=== PATIENT | male | born 1995 | race Caucasian/White ===

== ENCOUNTER 2019-03-02 08:14 | Emergency (ER) | payer OTHER ==
[~2019-03-02] VITALS: Ht 177.8 cm; Wt 78.1 kg
[2019-03-02] MEDS ORDERED: FLUORESCEIN OPHTH 1 MG STRIP OD ONE (10:15)
[2019-03-02] MEDS ORDERED: TETRACAINE 0.5% OPHTH SOLN 4ML OD ONE (10:30)
[2019-03-02] MEDS ORDERED: POLYVINYL ALCOHOL OPHTH SOLN 15 ML(LIQUITEARS) OD STA (12:07)
[2019-03-02] MEDS ORDERED: ARTIDRO OD (12:09)
[2019-03-02 12:39] VITALS: BP 123/68
== END 2019-03-02 12:41 | disposition home or self-care (01) ==
LOC: M ED 08:14
DX: H57.11 Ocular pain, right eye (principal); M54.9 Dorsalgia, unspecified

== ENCOUNTER 2019-03-20 14:44 | Inpatient (IN) | payer OTHER ==
[~2019-03-20] VITALS: Ht 180.3 cm; Wt 76.0 kg
[~2019-03-20 14:44] MED LIST: ARTIDRO OD
[2019-03-20 15:19] LABS: HEMATOCRIT 44.5 % (42.0-52.0); HEMOGLOBIN 14.7 g/dl (13.5-17.5); MEAN CORPUSCULAR HEMOGLOBIN 29.2 pg (27.0-33.0); MEAN CORPUSCULAR VOLUME 88.3 fl (80.0-96.0); PLATELET COUNT, AUTOMATED 240 10^3/uL (150-450); RED BLOOD COUNT 5.04 10^6/uL (4.30-6.10); WHITE BLOOD COUNT 9.5 10^3/uL (4.0-10.0)
[2019-03-20 15:49] LABS: AMPHETAMINES LEVEL URINE NEGATIVE (NEGATIVE); BARBITURATES URINE NEGATIVE (NEGATIVE); BENZODIAZEPINES URINE NEGATIVE (NEGATIVE); CANNABINOIDS URINE POSITIVE (NEGATIVE); COCAINE METABOLITE URINE NEGATIVE (NEGATIVE); METHADONE URINE NEGATIVE (NEGATIVE); OPIATES URINE NEGATIVE (NEGATIVE); PHENCYCLIDINE URINE NEGATIVE (NEGATIVE)
[2019-03-20 15:56] LABS: ACETAMINOPHEN LEVEL < 2.0 UG/ML (10.0-30.0); ALBUMIN 4.7 GM/DL (3.2-5.2); ALT/SGPT 25 U/L (12-78); BILIRUBIN,DIRECT 0.2 MG/DL (0.0-0.2); BILIRUBIN,TOTAL 0.4 MG/DL (0.2-1.0); BLOOD UREA NITROGEN 13 MG/DL (7-18); CALCIUM LEVEL 9.2 MG/DL (8.5-10.1); CARBON DIOXIDE LEVEL 30 MEQ/L (21-32); CHLORIDE LEVEL 105 MEQ/L (98-107); CREATININE FOR GFR 0.96 MG/DL (0.70-1.30); ETHYL ALCOHOL (ETHANOL) < 0.003 % (0.000-0.010); GLOMERULAR FILTRATION RATE > 60.0 (>60); GLUCOSE, FASTING 86 MG/DL (70-100); POTASSIUM SERUM 4.1 MEQ/L (3.5-5.1); SALICYLATE LEVEL < 1.7 MG/DL (5.0-30.0); SODIUM LEVEL 139 MEQ/L (136-145); THYROID STIMULATING HORMONE 0.819 uIU/ML (0.358-3.740); TOTAL PROTEIN 7.6 GM/DL (6.4-8.2)
[2019-03-20] MEDS ORDERED: MOM 30ML SUSPENSION UDC PO PRN (17:15)
[2019-03-20] MEDS: OLANZapine ORAL DISINTEGRATING TAB 5MG PO SCH (21:00)
[2019-03-20 22:15] VITALS: BP 117/66
[2019-03-20] MEDS: traZODone 50 MG TAB PO PRN (22:17)
[2019-03-21 06:09] VITALS: BP 111/64
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
[2019-03-21 15:31] VITALS: BP 131/83
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
[2019-03-21] MEDS: haloperidoL 5 MG TAB PO PRN (19:00)
[2019-03-21] MEDS: OLANZapine ORAL DISINTEGRATING TAB 5MG PO SCH (21:17)
[2019-03-22 06:15] VITALS: BP 122/74
--- NOTE | 2019-03-22 14:47 | MHIPN ---
DATE: 03/22/2019 The patient today is much different than she was yesterday. He tells me "I really like it here. It's better than the [employer]." When I try to ask him about some of the delusional things that he was saying yesterday, he said "I don't really want to talk about it. Thank you for your help. My head is clear today." He stated "I think I was having a panic attack and something triggered my PTSD." Of note was that he had the Zyprexa as needed and he did take it last night, and he also took the trazodone. He also took an as needed Haldol, all last night. MENTAL STATUS EXAMINATION: Today, as I said, the patient is much more cooperative. He is alert and oriented times three. He is verbally spontaneous. Psychomotor activity appears to be normal. No formal thought disorder is noted. He tells me that he is doing "better." His affect is constricted, but appropriate to mood. He is not suicidal or homicidal. I am not able to elicit any psychotic symptoms, but I do not know if he is just being guarded about everything. Insight and judgment is poor. Concentration is fair. Memory intact. DIAGNOSIS: Unspecified psychotic disorder. Rule out bipolar disorder with psychotic symptoms. TREATMENT PLAN: At this point, we will continue to monitor the patient for psychotic symptoms and what I feel is manic-like symptoms, where he was having the pressured speech, the flight of ideas yesterday, and very grandiose-type delusions. Today, those either have resolved or I suspect that he is just either minimizing or somewhat more guarded today. He did take, as I said, all last night, a dose of Haldol 5 mg, which was an as needed, and actually, Zyprexa 5 mg at bedtime that is scheduled for him. I am going to go ahead and keep him on what he is on now. I have discussed the risk and benefit.
[2019-03-22 16:04] VITALS: BP 130/62
[2019-03-22] MEDS: OLANZapine ORAL DISINTEGRATING TAB 5MG PO SCH (21:57)
[2019-03-22] MEDS: ACETAMINOPHEN TAB 650MG DOSE (2X325MG) PO PRN (21:57)
[2019-03-22] MEDS: haloperidoL 5 MG TAB PO PRN (22:31)
[2019-03-22] MEDS: traZODone 50 MG TAB PO PRN (22:31)
[2019-03-23 06:50] VITALS: BP 114/58
[2019-03-23] MEDS ORDERED: ARIPiprazole 2 MG TAB PO SCH (09:00)
--- NOTE | 2019-03-23 10:39 | MHIPNPDOC ---
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 He reportedly has significant cannabis use but has no psych history. Interval History Psychiatric symptoms today: The patient is met with today with tool and production planner. The patient appears amenable although somewhat pressured. Affective: The patient reports still difficulties with irritability, difficulty focusing, and pressured speech. Psychotic: The patient still has paranoia and delusional thoughts as well as aggression. Anxiety: still worry about being poisoned. Misc: eating okay/ sleeping difficulty Group Attendance: The patient attends but is argumentative and uncontrollable in groups Medication Side effects: See ROS below Behavioral problems/significant events overnight: The patient had difficulty and being redirected in groups many times. Staff Report: The patient is still quite bizarre, delusional at times, and can be quite agitated. Review Of Systems General: Denies fever or appetite changes Cardiovascular: Denies Chest pain or palpations GI: Denies Nausea, vomiting, or bowel changes Respiratory: Denies shortness of breath or cough Neuro: Denies dizziness, tremors Derm: Denies any rashes or pruritus : Denies any dysuria or urinary problems MSK: Denies any muscle tightness or stiffness HEENT: Denies any vision changes or headaches Psychotherapy None on this visit. Vital Signs Reviewed. Mental Status Examination General: Fair hygiene Speech: Mildly pressured Thought processes: Mildly tangential MSK: Smooth and coordinated gait, no signs of tremors or involuntary orofacial movements Thought content: Still rife with paranoia and bizarre thoughts Abstract reasoning, and computation: Impaired Description of associations: Impaired Description of abnormal or psychotic thoughts: Denies any suicidal or homicidal ideation. Denies any auditory or visual hallucinations. Does not appear to be responding to internal stimuli. Does not appear to be endorsing any bizarre or paranoid ideation. Judgment: impaired Insight: impaired Orientation: Alert and orientated 3 Cognition: Grossly normal Recent and remote memory: Intact Attention span and concentration: Mildly impaired Fund of knowledge: Adequate Mood: "fine" Affect: Little reactivity Diagnoses Bipolar disorder, type 1, most recent episode manic. Cannabis use disorder, severe. Assessment and Plan Bipolar disorder: Will cross-taper off of Zyprexa on to Invega 3 mg, as injectable would be preferable for this patient. Discussed the risks, benefits, and potential side effects with patient as well as alternatives. Cannabis use disorder: Recommend outpatient rehab. Discussed concerns about continued use. Disposition The patient will need a continued admission due to his [id number] manic episode, continued agitation, and irritability. He is still paranoid and delusional, although he guards himself quite readily around this provider. He would still be at great risk of violence towards others or himself if he is released too early. Time Spent 15 minutes. Saturday Vital Signs Vital Signs Date Time Temp Pulse Resp B/P (MAP) Pulse Ox O2 Delivery O2 Flow Rate FiO2 03/23/19 06:50 98.6 54 12 114/58 (76) 03/20/19 22:15 100 Room Air Current Medications Current Medications Medications (Trade) Dose Ordered Sig/Marisol Route PRN Reason Start Time Stop Time Status Last Admin Dose Admin Acetaminophen (Tylenol Tab) 650 mg Q6HP PRN PO HEADACHE or DISCOMFORT 03/20/19 17:15 03/22/19 21:57 Aripiprazole (AbiLIFY) 2 mg QAM PO 03/23/19 09:00 03/22/19 12:04 DC Haloperidol (Haldol) 5 mg Q6HP PRN PO ANXIETY/AGITATION 03/20/19 17:15 03/22/19 22:31 Home Med (Med Rec Complete!) ASDIRECTED XX 03/20/19 17:30 03/20/19 17:25 DC Ibuprofen (Advil) 400 mg Q6HP PRN PO PAIN 03/20/19 17:15 Magnesium Hydroxide (Milk Of Magnesia) 30 ml DAILYPRN PRN PO CONSTIPATION 03/20/19 17:15 Olanzapine (ZyPREXA ZYDIS) 5 mg Q4HP PRN PO AGITATION 03/20/19 17:15 Olanzapine (ZyPREXA ZYDIS) 5 mg QHS PO 03/20/19 21:00 03/22/19 21:57 Trazodone HCl (Desyrel) 50 mg QHSP PRN PO INSOMNIA 03/20/19 17:15 03/22/19 22:31 Allergies Coded Allergies: No Known Allergies (Unverified , 03/02/19) PRITI HUYNH DO Mar 23, 2019 10:39
[2019-03-23 16:00] VITALS: BP 115/56
[2019-03-23] MEDS ORDERED: OLANZapine ORAL DISINTEGRATING TAB 5MG PO SCH ×2 (21:00)
[2019-03-23] MEDS ORDERED: PALIPERIDONE 3 MG ER TAB (INVEGA) PO SCH (21:00)
[2019-03-23] MEDS: traZODone 50 MG TAB PO PRN (21:16)
[2019-03-24 06:16] VITALS: BP 131/76
--- NOTE | 2019-03-24 12:14 | MHIPNPDOC ---
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 He reportedly has significant cannabis use but has no psych history. Interval History Psychiatric symptoms today: The patient is met with today. He reports that he is "feeling better" and is amenable throughout the interview with some guardedness. Affective: The patient still reports difficulty with irritability, pressured speech and agitation in the morning. Psychotic: The patient at times will express delusional thoughts and paranoia. Anxiety: Still has paranoia about being poisoned. Misc: eating okay/ sleeping difficulty Group Attendance: The patient attends but is argumentative and uncontrollable in groups Medication Side effects: See ROS below Behavioral problems/significant events overnight: The patient has notable agitation needing as needed medications in the morning. Staff Report: The patient is still quite bizarre, delusional at times, and can be quite agitated. Review Of Systems General: Denies fever or appetite changes Cardiovascular: Denies Chest pain or palpitations GI: Denies Nausea, vomiting, or bowel changes Respiratory: Denies shortness of breath or cough Neuro: Denies dizziness, tremors Derm: Denies any rashes or pruritus : Denies any dysuria or urinary problems MSK: Denies any muscle tightness or stiffness HEENT: Denies any vision changes or headaches Psychotherapy None on this visit. Vital Signs Reviewed. Mental Status Examination General: Fair hygiene Speech: Mildly pressured Thought processes: Mildly tangential MSK: Smooth and coordinated gait, no signs of tremors or involuntary orofacial movements Thought content: Admits to less paranoia. Abstract reasoning, and computation: Impaired Description of associations: Impaired Description of abnormal or psychotic thoughts: Denies any suicidal or homicidal ideation. Denies any auditory or visual hallucinations. Does not appear to be responding to internal stimuli. Does not appear to be endorsing any bizarre or paranoid ideation. Judgment: impaired Insight: impaired Orientation: Alert and orientated 3 Cognition: Grossly normal Recent and remote memory: Intact Attention span and concentration: Mildly impaired Fund of knowledge: Adequate Mood: "fine" Affect: Little reactivity Diagnoses Bipolar disorder, type 1, most recent episode manic. Cannabis use disorder, severe. Assessment and Plan Bipolar disorder: We will increase Invega to 6 mg nightly. Patient still ambivalent about injection. Cannabis use disorder: Recommend outpatient rehab. Discussed concerns about continued use. Disposition The patient will need a continued admission due to his [id number] manic episode, continued agitation, and irritability. He is still paranoid and delusional, although he guards himself quite readily around this provider. He would still be at great risk of violence towards others or himself if he is released too early. Time Spent 15 minutes. Saturday Vital Signs Vital Signs Date Time Temp Pulse Resp B/P (MAP) Pulse Ox O2 Delivery O2 Flow Rate FiO2 03/24/19 06:16 98.9 69 18 131/76 (94) 03/20/19 22:15 100 Room Air Current Medications Current Medications Medications (Trade) Dose Ordered Sig/Marisol Route PRN Reason Start Time Stop Time Status Last Admin Dose Admin Acetaminophen (Tylenol Tab) 650 mg Q6HP PRN PO HEADACHE or DISCOMFORT 03/20/19 17:15 03/22/19 21:57 Aripiprazole (AbiLIFY) 2 mg QAM PO 03/23/19 09:00 03/22/19 12:04 DC Haloperidol (Haldol) 5 mg Q6HP PRN PO ANXIETY/AGITATION 03/20/19 17:15 03/22/19 22:31 Home Med (Med Rec Complete!) ASDIRECTED XX 03/20/19 17:30 03/20/19 17:25 DC Ibuprofen (Advil) 400 mg Q6HP PRN PO PAIN 03/20/19 17:15 Magnesium Hydroxide (Milk Of Magnesia) 30 ml DAILYPRN PRN PO CONSTIPATION 03/20/19 17:15 Olanzapine (ZyPREXA ZYDIS) 5 mg Q4HP PRN PO AGITATION 03/20/19 17:15 Olanzapine (ZyPREXA ZYDIS) 5 mg QHS PO 03/20/19 21:00 03/23/19 10:45 DC 03/22/19 21:57 Olanzapine (ZyPREXA ZYDIS) 5 mg QHS PO 03/23/19 21:00 03/23/19 21:16 Olanzapine (ZyPREXA ZYDIS) 10 mg QHS PO 03/23/19 21:00 03/23/19 13:01 DC Paliperidone (Invega) 3 mg QHS PO 03/23/19 21:00 03/23/19 21:16 Trazodone HCl (Desyrel) 50 mg QHSP PRN PO INSOMNIA 03/20/19 17:15 03/23/19 21:16 Allergies Coded Allergies: No Known Allergies (Unverified , 03/02/19) PRITI HUYNH DO Mar 24, 2019 12:14
[2019-03-24 16:05] VITALS: BP 138/66
[2019-03-24] MEDS ORDERED: SENNA 8.6 MG TAB (SENOKOT) PO PRN (17:15)
[2019-03-24] MEDS: IBUPROFEN 400 MG TAB PO PRN (19:02)
[2019-03-24] MEDS: OLANZapine ORAL DISINTEGRATING TAB 5MG PO PRN (19:03)
[2019-03-24] MEDS: haloperidoL 5 MG TAB PO PRN (20:09)
[2019-03-24] MEDS ORDERED: PALIPERIDONE 6 MG ER TAB (INVEGA) PO SCH (21:00)
[2019-03-24] MEDS: traZODone 50 MG TAB PO PRN (21:38)
[2019-03-25 07:24] VITALS: BP 114/64
[2019-03-25] MEDS: IBUPROFEN 400 MG TAB PO PRN ×2 (07:36→13:41)
[2019-03-25] MEDS: OLANZapine ORAL DISINTEGRATING TAB 5MG PO PRN ×2 (09:13→20:54)
[2019-03-25] MEDS: haloperidoL 5 MG TAB PO PRN (10:17)
--- NOTE | 2019-03-25 11:48 | MHIPNPDOC ---
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 He reportedly has significant cannabis use but has no psych history. Interval History Psychiatric symptoms today: The patient is met with today. He reports that he is feeling somewhat better, still has difficulty with being quite guarded during the interview. Affective: The patient still reports irritability, improved pressured speech and still has difficulty in the morning with agitation. Psychotic: The patient at times will express delusional thoughts and paranoia. Anxiety: Still has paranoia about being poisoned. Misc: eating okay/ sleeping difficulty Group Attendance: The patient attends but is argumentative and uncontrollable in groups Medication Side effects: See ROS below Behavioral problems/significant events overnight: The patient has notable agitation needing as needed medications in the morning. Staff Report: The patient is still quite bizarre, delusional at times, and can be quite agitated. Review Of Systems General: Denies fever or appetite changes Cardiovascular: Denies Chest pain or palpations GI: Denies Nausea, vomiting, or bowel changes Respiratory: Denies shortness of breath or cough Neuro: Denies dizziness, tremors Derm: Denies any rashes or pruritus : Denies any dysuria or urinary problems MSK: Denies any muscle tightness or stiffness HEENT: Denies any vision changes or headaches Psychotherapy None on this visit. Vital Signs Reviewed. Mental Status Examination General: Fair hygiene Speech: Improved, more fluent. Thought processes: More focused MSK: Smooth and coordinated gait, no signs of tremors or involuntary orofacial movements Thought content: Admits to less paranoia. Abstract reasoning, and computation: Improved Description of associations: Improved Description of abnormal or psychotic thoughts: Denies any suicidal or homicidal ideation. Denies any auditory or visual hallucinations. Does not appear to be responding to internal stimuli. Does not appear to be endorsing any bizarre or paranoid ideation. Judgment: Improved Insight: Improved Orientation: Alert and orientated 3 Cognition: Grossly normal Recent and remote memory: Intact Attention span and concentration: Improved Fund of knowledge: Adequate Mood: "fine" Affect: More reactivity Diagnoses Bipolar disorder, type 1, most recent episode manic. Cannabis use disorder, severe. Assessment and Plan Bipolar disorder: Invega 3 mg BID. Patient reports he feels the medication stops working in the morning and could have periods of off time. We will patient Invega Sustenna 234 injection intramuscular. Cannabis use disorder: Recommend outpatient rehab. Discussed concerns about continued use. Disposition Patient will need a further inpatient admission due to his severe bipolar disorder. He is making some improvements, but at this time will still need medication titration, he is open to injection of which he will get. Time Spent 15 minutes. Saturday Vital Signs Vital Signs Date Time Temp Pulse Resp B/P (MAP) Pulse Ox O2 Delivery O2 Flow Rate FiO2 03/25/19 07:24 98.0 94 16 114/64 (81) 03/20/19 22:15 100 Room Air Current Medications Current Medications Medications (Trade) Dose Ordered Sig/Marisol Route PRN Reason Start Time Stop Time Status Last Admin Dose Admin Acetaminophen (Tylenol Tab) 650 mg Q6HP PRN PO HEADACHE or DISCOMFORT 03/20/19 17:15 03/22/19 21:57 Aripiprazole (AbiLIFY) 2 mg QAM PO 03/23/19 09:00 03/22/19 12:04 DC Haloperidol (Haldol) 5 mg Q6HP PRN PO ANXIETY/AGITATION 03/20/19 17:15 03/25/19 10:17 Home Med (Med Rec Complete!) ASDIRECTED XX 03/20/19 17:30 03/20/19 17:25 DC Ibuprofen (Advil) 400 mg Q6HP PRN PO PAIN 03/20/19 17:15 03/25/19 07:36 Magnesium Hydroxide (Milk Of Magnesia) 30 ml DAILYPRN PRN PO CONSTIPATION 03/20/19 17:15 Olanzapine (ZyPREXA ZYDIS) 5 mg Q4HP PRN PO AGITATION 03/20/19 17:15 03/25/19 09:13 Olanzapine (ZyPREXA ZYDIS) 5 mg QHS PO 03/20/19 21:00 03/23/19 10:45 DC 03/22/19 21:57 Olanzapine (ZyPREXA ZYDIS) 5 mg QHS PO 03/23/19 21:00 03/24/19 15:00 DC 03/23/19 21:16 Olanzapine (ZyPREXA ZYDIS) 10 mg QHS PO 03/23/19 21:00 03/23/19 13:01 DC Paliperidone (Invega) 3 mg QHS PO 03/23/19 21:00 03/24/19 15:00 DC 03/23/19 21:16 Paliperidone (Invega) 6 mg QHS PO 03/24/19 21:00 03/24/19 20:09 Senna (Senokot) 1 tab DAILYPRN PRN PO CONSTIPATION 03/24/19 17:15 Trazodone HCl (Desyrel) 50 mg QHSP PRN PO INSOMNIA 03/20/19 17:15 03/24/19 21:38 Allergies Coded Allergies: No Known Allergies (Unverified , 03/02/19) PRITI HUYNH DO Mar 25, 2019 11:48
[2019-03-25] MEDS ORDERED: PALIPERIDONE 6 MG ER TAB (INVEGA) PO SCH (12:00)
[2019-03-25] MEDS ORDERED: PALIPERIDONE PALMITATE 234MG/1.5ML INJ (INVEGA)(J2426)(FREE PSY INPT ONLY) IM ONE (12:00)
[2019-03-25] MEDS: PALIPERIDONE 3 MG ER TAB (INVEGA) PO SCH ×2 (12:48→20:54)
[2019-03-25 16:30] VITALS: BP 131/71
[2019-03-25] MEDS: traZODone 50 MG TAB PO PRN (20:54)
[2019-03-25] MEDS ORDERED: traZODone 50 MG TAB PO ONE (22:30)
[2019-03-26 06:22] VITALS: BP 149/88
[2019-03-26] MEDS: PALIPERIDONE 3 MG ER TAB (INVEGA) PO SCH ×2 (07:47→20:28)
[2019-03-26] MEDS: OLANZapine ORAL DISINTEGRATING TAB 5MG PO PRN ×2 (07:48→18:10)
[2019-03-26] MEDS: haloperidoL 5 MG TAB PO PRN (10:00)
--- NOTE | 2019-03-26 10:46 | MHIPNPDOC ---
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 He reportedly has significant cannabis use but has no psych history. Interval History Narrative: The patient has met with, he had difficulty this morning with agitation and bizarreness when met with he is somewhat guarded, but more appropriate with me. Affective: The patient endorses some worries, but no depression. Psychotic: Patient's irritability, pressured speech, and disorganization and paranoia still present at times, although the patient denies they are getting worse change. Anxiety: The patient reports still some paranoid thoughts. Eating and sleeping behaviors: Within normal limits. Group Attendance: Attends groups, but direction change. Behavioral problems/significant events overnight: The patient this morning, looking quite agitated, bizarre and paranoid. He made various acquisitions demanding to leave. Staff Report: The patient appears to be in behavioral control more in the afternoon and in the mornings he tends to be quite paranoid and distraught. Review Of Systems General: Denies fever or appetite changes Cardiovascular: Denies Chest pain or palpations GI: Denies Nausea, vomiting, or bowel changes Respiratory: Denies shortness of breath or cough Neuro: Denies dizziness, tremors Derm: Denies any rashes or pruritus : Denies any dysuria or urinary problems MSK: Denies any muscle tightness or stiffness HEENT: Denies any vision changes or headaches Psychotherapy None on this visit. Vital Signs Reviewed. Mental Status Examination General: Fair hygiene Speech: Improved, more fluent. Thought processes: More focused MSK: Smooth and coordinated gait, no signs of tremors or involuntary orofacial movements Thought content: Admits to less paranoia. Abstract reasoning, and computation: Improved Description of associations: Improved Description of abnormal or psychotic thoughts: Denies any suicidal or homicidal ideation. Denies any auditory or visual hallucinations. Does not appear to be responding to internal stimuli. Does not appear to be endorsing any bizarre or paranoid ideation. Judgment: Improved Insight: Improved Orientation: Alert and orientated 3 Cognition: Grossly normal Recent and remote memory: Intact Attention span and concentration: Improved Fund of knowledge: Adequate Mood: "fine" Affect: More reactivity Diagnoses Bipolar disorder, type 1, most recent episode manic. Cannabis use disorder, severe. Assessment and Plan Bipolar disorder: Continue Invega 3 mg BID. Try Inderal and Cogentin as possible akathisia side effect causing difficulties in the morning. Cannabis use disorder: Recommend outpatient rehab. Discussed concerns about continued use. Disposition Patient will need a further inpatient admission due to his severe bipolar di sorder. He is making some improvements, but at this time will still need medication titration, he is open to injection of which he will get. Time Spent 15 minutes. Vital Signs Vital Signs Date Time Temp Pulse Resp B/P (MAP) Pulse Ox O2 Delivery O2 Flow Rate FiO2 03/26/19 09:41 Room Air 03/26/19 06:22 97.3 76 14 149/88 (108) 03/20/19 22:15 100 Current Medications Current Medications Medications (Trade) Dose Ordered Sig/Marisol Route PRN Reason Start Time Stop Time Status Last Admin Dose Admin Acetaminophen (Tylenol Tab) 650 mg Q6HP PRN PO HEADACHE or DISCOMFORT 03/20/19 17:15 03/22/19 21:57 Aripiprazole (AbiLIFY) 2 mg QAM PO 03/23/19 09:00 03/22/19 12:04 DC Haloperidol (Haldol) 5 mg Q6HP PRN PO ANXIETY/AGITATION 03/20/19 17:15 03/26/19 10:00 Home Med (Med Rec Complete!) ASDIRECTED XX 03/20/19 17:30 03/20/19 17:25 DC Ibuprofen (Advil) 400 mg Q6HP PRN PO PAIN 03/20/19 17:15 03/25/19 13:41 Magnesium Hydroxide (Milk Of Magnesia) 30 ml DAILYPRN PRN PO CONSTIPATION 03/20/19 17:15 03/26/19 10:43 Olanzapine (ZyPREXA ZYDIS) 5 mg Q4HP PRN PO AGITATION 03/20/19 17:15 03/26/19 07:48 Olanzapine (ZyPREXA ZYDIS) 5 mg QHS PO 03/20/19 21:00 03/23/19 10:45 DC 03/22/19 21:57 Olanzapine (ZyPREXA ZYDIS) 5 mg QHS PO 03/23/19 21:00 03/24/19 15:00 DC 03/23/19 21:16 Olanzapine (ZyPREXA ZYDIS) 10 mg QHS PO 03/23/19 21:00 03/23/19 13:01 DC Paliperidone (Invega) 3 mg BID PO 03/25/19 09:00 03/26/19 07:47 Paliperidone (Invega) 3 mg BID PO 03/25/19 12:00 03/25/19 12:37 DC Paliperidone (Invega) 3 mg QHS PO 03/23/19 21:00 03/24/19 15:00 DC 03/23/19 21:16 Paliperidone (Invega) 6 mg QHS PO 03/24/19 21:00 03/25/19 12:01 DC 03/24/19 20:09 Senna (Senokot) 1 tab DAILYPRN PRN PO CONSTIPATION 03/24/19 17:15 Trazodone HCl (Desyrel) 50 mg QHSP PRN PO INSOMNIA 03/20/19 17:15 03/25/19 20:54 Allergies Coded Allergies: No Known Allergies (Unverified , 03/02/19) PRITI HUYNH DO Mar 26, 2019 10:46
[2019-03-26] MEDS ORDERED: PILL CUTTER 1 EACH XX PRN (11:15)
[2019-03-26] MEDS ORDERED: BENZTROPINE 0.5 MG TAB PO ONE (11:15)
[2019-03-26] MEDS ORDERED: PROPRANOLOL 10 MG TAB PO ONE (12:00)
[2019-03-26] MEDS ORDERED: ANALGESIC BALM CRM 120 GM TOP ONE (13:00)
[2019-03-26] MEDS: IBUPROFEN 400 MG TAB PO PRN (13:43)
[2019-03-26 18:40] VITALS: BP 143/72
[2019-03-26] MEDS: ACETAMINOPHEN TAB 650MG DOSE (2X325MG) PO PRN (20:28)
[2019-03-26] MEDS: traZODone 50 MG TAB PO PRN (21:48)
[2019-03-27 06:09] VITALS: BP 144/72
[2019-03-27] MEDS: OLANZapine ORAL DISINTEGRATING TAB 5MG PO PRN ×2 (06:12→10:27)
[2019-03-27] MEDS: IBUPROFEN 400 MG TAB PO PRN ×2 (06:35→15:59)
[2019-03-27] MEDS: PALIPERIDONE 3 MG ER TAB (INVEGA) PO SCH ×2 (08:56→20:58)
[2019-03-27] MEDS ORDERED: PROPRANOLOL 10 MG TAB PO PRN (11:00)
--- NOTE | 2019-03-27 11:27 | MHIPNPDOC ---
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 He reportedly has significant cannabis use but has no psych history. Interval History Narrative: The patient is met with, he had another difficult morning with agitation and bizarreness; however, this had resolved by the time I had seen him. He reports that he still has moments. He reports that the medication is helpful. Affective: The patient endorses some worries, but no depression. Psychotic: Patient's irritability, pressured speech, and disorganization and paranoia still present at times, although the patient denies they are getting worse change. Anxiety: The patient reports still some paranoid thoughts. Eating and sleeping behaviors: Within normal limits. Group Attendance: Attends groups, but direction change. Behavioral problems/significant events overnight: The patient had difficulties this morning with being quite agitated, bizarre and paranoid. Staff Report: The patient has difficulties in the morning primarily, but otherwise is well Review Of Systems General: Denies fever or appetite changes Cardiovascular: Denies Chest pain or palpations GI: Denies Nausea, vomiting, or bowel changes Respiratory: Denies shortness of breath or cough Neuro: Denies dizziness, tremors Derm: Denies any rashes or pruritus : Denies any dysuria or urinary problems MSK: Denies any muscle tightness or stiffness HEENT: Denies any vision changes or headaches Psychotherapy None on this visit. Vital Signs Reviewed. Mental Status Examination General: Fair hygiene Speech: Improved, more fluent. Thought processes: More focused MSK: Smooth and coordinated gait, no signs of tremors or involuntary orofacial movements Thought content: Admits to less paranoia. Abstract reasoning, and computation: Improved Description of associations: Improved Description of abnormal or psychotic thoughts: Denies any suicidal or homicidal ideation. Denies any auditory or visual hallucinations. Does not appear to be responding to internal stimuli. Does not appear to be endorsing any bizarre or paranoid ideation. Judgment: Improved Insight: Improved Orientation: Alert and orientated 3 Cognition: Grossly normal Recent and remote memory: Intact Attention span and concentration: Improved Fund of knowledge: Adequate Mood: "fine" Affect: More reactivity Diagnoses Bipolar disorder, type 1, most recent episode manic. Cannabis use disorder, severe. Assessment and Plan Bipolar disorder: Continue Invega 3 mg BID second injection of 154 mg of Invega Sustenna will be given tomorrow with discontinuation of oral, started propranolol 10 mg every 6 hours for restlessness and agitation due to concerns of akathisia. Cannabis use disorder: Recommend outpatient rehab. Discussed concerns about continued use. Disposition The patient will need a further observation over the weekend in order to determine if he is improving enough that he can be discharged. Time Spent 15 minutes. Saturday Vital Signs Vital Signs Date Time Temp Pulse Resp B/P (MAP) Pulse Ox O2 Delivery O2 Flow Rate FiO2 03/27/19 06:09 98.4 76 16 144/72 (96) 03/26/19 09:41 Room Air Current Medications Current Medications Medications (Trade) Dose Ordered Sig/Marisol Route PRN Reason Start Time Stop Time Status Last Admin Dose Admin Acetaminophen (Tylenol Tab) 650 mg Q6HP PRN PO HEADACHE or DISCOMFORT 03/20/19 17:15 03/26/19 20:28 Aripiprazole (AbiLIFY) 2 mg QAM PO 03/23/19 09:00 03/22/19 12:04 DC Benztropine Mesylate (Cogentin) 0.5 mg BIDP PRN PO eps 03/26/19 11:15 Haloperidol (Haldol) 5 mg Q6HP PRN PO ANXIETY/AGITATION 03/20/19 17:15 03/26/19 10:00 Home Med (Med Rec Complete!) ASDIRECTED XX 03/20/19 17:30 03/20/19 17:25 DC Ibuprofen (Advil) 400 mg Q6HP PRN PO PAIN 03/20/19 17:15 03/27/19 06:35 Magnesium Hydroxide (Milk Of Magnesia) 30 ml DAILYPRN PRN PO CONSTIPATION 03/20/19 17:15 03/26/19 10:43 Olanzapine (ZyPREXA ZYDIS) 5 mg Q4HP PRN PO AGITATION 03/20/19 17:15 03/27/19 10:27 Olanzapine (ZyPREXA ZYDIS) 5 mg QHS PO 03/20/19 21:00 03/23/19 10:45 DC 03/22/19 21:57 Olanzapine (ZyPREXA ZYDIS) 5 mg QHS PO 03/23/19 21:00 03/24/19 15:00 DC 03/23/19 21:16 Olanzapine (ZyPREXA ZYDIS) 10 mg QHS PO 03/23/19 21:00 03/23/19 13:01 DC Paliperidone (Invega) 3 mg BID PO 03/25/19 09:00 03/27/19 08:56 Paliperidone (Invega) 3 mg BID PO 03/25/19 12:00 03/25/19 12:37 DC Paliperidone (Invega) 3 mg QHS PO 03/23/19 21:00 03/24/19 15:00 DC 03/23/19 21:16 Paliperidone (Invega) 6 mg QHS PO 03/24/19 21:00 03/25/19 12:01 DC 03/24/19 20:09 Propranolol HCl (Inderal) 10 mg Q6H PRN PO anxiety/restlessness 03/27/19 11:00 Senna (Senokot) 1 tab DAILYPRN PRN PO CONSTIPATION 03/24/19 17:15 Trazodone HCl (Desyrel) 50 mg QHSP PRN PO INSOMNIA 03/20/19 17:15 03/26/19 21:48 Allergies Coded Allergies: No Known Allergies (Unverified , 03/02/19) PRITI HUYNH DO Mar 27, 2019 11:27
[2019-03-27] MEDS ORDERED: PALIPERIDONE PALMITATE 156MG/1ML INJ(INVEGA)(J2426)(FREE PSY INPT ONLY) IM ONE (15:00)
[2019-03-27] MEDS: haloperidoL 5 MG TAB PO PRN (15:59)
[2019-03-27 16:27] VITALS: BP 138/65
[2019-03-27] MEDS: traZODone 50 MG TAB PO PRN (20:58)
[2019-03-27] MEDS: BENZTROPINE 0.5 MG TAB PO PRN (20:59)
[2019-03-28 05:59] VITALS: BP 129/66
[2019-03-28] MEDS: PALIPERIDONE 3 MG ER TAB (INVEGA) PO SCH (08:24)
[2019-03-28] MEDS ORDERED: PALIPERIDONE PALMITATE 156MG/1ML INJ(INVEGA)(J2426)(FREE PSY INPT ONLY) IM ONE (09:00)
[2019-03-28] MEDS: OLANZapine ORAL DISINTEGRATING TAB 5MG PO PRN ×2 (09:08→17:29)
[2019-03-28] MEDS: IBUPROFEN 400 MG TAB PO PRN ×2 (09:09→17:30)
[2019-03-28] MEDS: haloperidoL 5 MG TAB PO PRN ×2 (12:08→20:44)
[2019-03-28 16:18] VITALS: BP 131/88
[2019-03-28 19:21] VITALS: BP 131/88
[2019-03-28] MEDS: BENZTROPINE 0.5 MG TAB PO PRN (20:44)
[2019-03-28] MEDS: traZODone 50 MG TAB PO PRN (20:44)
[2019-03-29 06:33] VITALS: BP 102/68
[2019-03-29] MEDS: IBUPROFEN 400 MG TAB PO PRN ×2 (09:20→16:30)
[2019-03-29] MEDS: OLANZapine ORAL DISINTEGRATING TAB 5MG PO PRN ×2 (09:21→19:20)
[2019-03-29 16:07] VITALS: BP 138/64
[2019-03-29] MEDS: haloperidoL 5 MG TAB PO PRN (16:30)
[2019-03-29] MEDS: ACETAMINOPHEN TAB 650MG DOSE (2X325MG) PO PRN (19:20)
[2019-03-29] MEDS: traZODone 50 MG TAB PO PRN (20:33)
[2019-03-29] MEDS: BENZTROPINE 0.5 MG TAB PO PRN (20:33)
[2019-03-30 06:49] VITALS: BP 102/55
[2019-03-30] MEDS: OLANZapine ORAL DISINTEGRATING TAB 5MG PO PRN ×2 (10:44→20:31)
[2019-03-30] MEDS: IBUPROFEN 400 MG TAB PO PRN (10:44)
--- NOTE | 2019-03-30 11:06 | MHIPNPDOC ---
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 He reportedly has significant cannabis use but has no psych history. Interval History Narrative: The patient is met with, he has been doing better and had taken the injection over the weekend. He reports that he is feeling better. He is still pending a court hearing, however, has had no episodes of severe agitation. Affective: The patient only endorses some worries, denies any depressive symptoms. Psychotic: The patient's mildly paranoid ideation appears to still appear in meetings with others, but does not appear during my meeting with him. He denies any symptoms of that such. Anxiety: The patient reports feeling "bettter." Eating and sleeping behaviors: Within normal limits. Group Attendance: Attends groups, but has behavioral problems at times. Behavioral problems/significant events overnight: The patient has reportedly talked about some bizarre ideation, however, has not had any aggression or unusual behaviors that would impair his ADLs. Staff Report: The patient has been generally amenable, although will at times make some unusual statements. Review Of Systems General: Denies fever or appetite changes Cardiovascular: Denies Chest pain or palpations GI: Denies Nausea, vomiting, or bowel changes Respiratory: Denies shortness of breath or cough Neuro: Denies dizziness, tremors Derm: Denies any rashes or pruritus : Denies any dysuria or urinary problems MSK: Denies any muscle tightness or stiffness HEENT: Denies any vision changes or headaches Psychotherapy None on this visit. Vital Signs Reviewed. Mental Status Examination General: Fair hygiene Speech: Fluid, nonpressured. Thought processes: Linear. MSK: Smooth and coordinated gait, no signs of tremors or involuntary orofacial movements Thought content: Denies any paranoid thoughts. Abstract reasoning, and computation: Improved Description of associations: Improved Description of abnormal or psychotic thoughts: Denies any suicidal or homicidal ideation. Denies any auditory or visual hallucinations. Does not appear to be responding to internal stimuli. Does not appear to be endorsing any bizarre or paranoid ideation. Judgment: Improved Insight: Improved Orientation: Alert and orientated 3 Cognition: Grossly normal Recent and remote memory: Intact Attention span and concentration: Improved Fund of knowledge: Adequate Mood: "fine" Affect: Reactive, euthymic Diagnoses Bipolar disorder, type 1, most recent episode manic. Cannabis use disorder, severe. Assessment and Plan Bipolar disorder: Continue propranolol for potential akathisia, is currently loaded on Invega. Cannabis use disorder: Recommend outpatient rehab. Discussed concerns about continued use. Disposition The patient will be discharged tomorrow as he has requested a court hearing and at this time he has not done any aggressive behaviors, has not made any threats towards others, and has only broadcast some unusual/paranoid ideation from time to time. However at this time I do not believe we would be successful in any court petition and I find it difficult to make a strong argument for him being gravely impaired as he has been attending to his needs on the unit and he has not been demonstrating any aggressive behavior towards others that has been documented and thus he will have to be discharged in good ban even after I have discussed with him and offered long-term treatment and other alternatives. Time Spent 15 minutes. Saturday Vital Signs Vital Signs Date Time Temp Pulse Resp B/P (MAP) Pulse Ox O2 Delivery O2 Flow Rate FiO2 03/30/19 06:49 97.6 65 14 102/55 (71) Room Air Current Medications Current Medications Medications (Trade) Dose Ordered Sig/Marisol Route PRN Reason Start Time Stop Time Status Last Admin Dose Admin Acetaminophen (Tylenol Tab) 650 mg Q6HP PRN PO HEADACHE or DISCOMFORT 03/20/19 17:15 03/29/19 19:20 Aripiprazole (AbiLIFY) 2 mg QAM PO 03/23/19 09:00 03/22/19 12:04 DC Benztropine Mesylate (Cogentin) 0.5 mg BIDP PRN PO eps 03/26/19 11:15 03/29/19 20:33 Haloperidol (Haldol) 5 mg Q6HP PRN PO ANXIETY/AGITATION 03/20/19 17:15 03/29/19 16:30 Home Med (Med Rec Complete!) ASDIRECTED XX 03/20/19 17:30 03/20/19 17:25 DC Ibuprofen (Advil) 400 mg Q6HP PRN PO PAIN 03/20/19 17:15 03/30/19 10:44 Magnesium Hydroxide (Milk Of Magnesia) 30 ml DAILYPRN PRN PO CONSTIPATION 03/20/19 17:15 03/26/19 10:43 Olanzapine (ZyPREXA ZYDIS) 5 mg Q4HP PRN PO AGITATION 03/20/19 17:15 03/30/19 10:44 Olanzapine (ZyPREXA ZYDIS) 5 mg QHS PO 03/20/19 21:00 03/23/19 10:45 DC 03/22/19 21:57 Olanzapine (ZyPREXA ZYDIS) 5 mg QHS PO 03/23/19 21:00 03/24/19 15:00 DC 03/23/19 21:16 Olanzapine (ZyPREXA ZYDIS) 10 mg QHS PO 03/23/19 21:00 03/23/19 13:01 DC Paliperidone (Invega) 3 mg BID PO 03/25/19 09:00 03/28/19 09:00 DC 03/28/19 08:24 Paliperidone (Invega) 3 mg BID PO 03/25/19 12:00 03/25/19 12:37 DC Paliperidone (Invega) 3 mg QHS PO 03/23/19 21:00 03/24/19 15:00 DC 03/23/19 21:16 Paliperidone (Invega) 6 mg QHS PO 03/24/19 21:00 03/25/19 12:01 DC 03/24/19 20:09 Propranolol HCl (Inderal) 10 mg Q6H PRN PO anxiety/restlessness 03/27/19 11:00 03/28/19 19:21 Senna (Senokot) 1 tab DAILYPRN PRN PO CONSTIPATION 03/24/19 17:15 Trazodone HCl (Desyrel) 50 mg QHSP PRN PO INSOMNIA 03/20/19 17:15 03/29/19 20:33 Allergies Coded Allergies: No Known Allergies (Unverified , 03/02/19) PRITI HUYNH DO Mar 30, 2019 11:06
[2019-03-30 16:20] VITALS: BP 134/56
[2019-03-30] MEDS: haloperidoL 5 MG TAB PO PRN (16:35)
[2019-03-30] MEDS: ACETAMINOPHEN TAB 650MG DOSE (2X325MG) PO PRN (20:32)
[2019-03-31] MEDS: OLANZapine ORAL DISINTEGRATING TAB 5MG PO PRN (09:33)
[2019-03-31] MEDS: IBUPROFEN 400 MG TAB PO PRN (09:35)
--- NOTE | 2019-03-31 10:43 | MHDSPDOC ---
[facility] Discharge Summary Discharge Summary DATE OF ADMISSION: Mar 20, 2019 at 17:09 DATE OF DISCHARGE: DISCHARGE DIAGNOSES: 1. . 2. . REASON FOR ADMISSION: CONSULTANTS INVOLVED: TREATMENT AND PROGRESS ON THE UNIT : . HOSPITAL COURSE: DISCHARGE ASSESSMENT: MENTAL STATUS EXAMINATION ON DISCHARGE: Patient is a -year old male, who is . Speech is . Language skills are . Thought processes including: . Thought content: . Abstract reasoning, and computation: . Description of associations: . Description of abnormal or psychotic thoughts: . Judgment: . Insight: . Orientation to . Recent and remote memory: . Attention span and concentration: . Language: . Fund of knowledge: . Mood: . Affect: . MEDICATIONS ON DISCHARGE: - for . - for . - for . PLAN/FOLLOWUP ARRANGEMENTS: . The amount of time spent in the coordination of care for this patient was approximately minutes. Vital Signs/I&Os Vital Signs Date Time Temp Pulse Resp B/P (MAP) Pulse Ox O2 Delivery O2 Flow Rate FiO2 03/30/19 16:20 98.9 87 16 134/56 (82) Room Air Medications Scheduled Olanzapine (Zyprexa) 5 Mg Tablet, 1 TAB PO QPM for thoughts for 30 Days, #30 Scheduled PRN Propranolol HCl (Propranolol HCl) 10 Mg Tablet, 10 MG PO Q6H PRN for anxiety/restlessness for 7 Days, #7 Allergies Coded Allergies: No Known Allergies (Unverified , 03/02/19) PRITI HUYNH DO Mar 31, 2019 10:43
[2019-03-31] MEDS ORDERED: ZYPR5TAB2 PO (10:46)
[2019-03-31] MEDS ORDERED: PROP10TA56 PO (10:46)
== END 2019-03-31 13:40 | disposition home or self-care (01) | DRG 885 ==
LOC: M ED 14:44 → M ED INP 17:09 → M PSY 20:40
PROVIDERS: ADMIT Psychiatry & Neurology Addiction Medicine; ATTEND Psychiatry & Neurology Addiction Medicine
DX: F31.2 Bipolar disorder, current episode manic severe with psychotic features (principal); F12.90 Cannabis use, unspecified, uncomplicated; Z87.891 Personal history of nicotine dependence

== ENCOUNTER 2019-04-12 20:32 | Emergency (ER) | payer OTHER ==
[~2019-04-12] VITALS: Ht 177.8 cm; Wt 85.9 kg
[~2019-04-12 20:32] MED LIST changes: +INVE156I IM; +PROP10TA56 PO; +ZYPR5TAB2 PO
[2019-04-12 21:48] LABS: HEMOGLOBIN 13.4 g/dl (13.5-17.5); MEAN CORPUSCULAR HEMOGLOBIN 29.7 pg (27.0-33.0); MEAN CORPUSCULAR HGB CONC 33.5 g/dl (32.0-36.5); MEAN CORPUSCULAR VOLUME 88.7 fl (80.0-96.0); PLATELET COUNT, AUTOMATED 215 10^3/uL (150-450); RED BLOOD COUNT 4.51 10^6/uL (4.30-6.10); WHITE BLOOD COUNT 8.5 10^3/uL (4.0-10.0)
[2019-04-12 22:11] LABS: AMPHETAMINES LEVEL URINE NEGATIVE (NEGATIVE); BARBITURATES URINE NEGATIVE (NEGATIVE); BENZODIAZEPINES URINE NEGATIVE (NEGATIVE); CANNABINOIDS URINE NEGATIVE (NEGATIVE); COCAINE METABOLITE URINE NEGATIVE (NEGATIVE); METHADONE URINE NEGATIVE (NEGATIVE); OPIATES URINE NEGATIVE (NEGATIVE); PHENCYCLIDINE URINE NEGATIVE (NEGATIVE)
[2019-04-12 22:38] LABS: ACETAMINOPHEN LEVEL < 2.0 UG/ML (10.0-30.0); ALBUMIN 3.8 GM/DL (3.2-5.2); ALT/SGPT 373 U/L (12-78); BILIRUBIN,DIRECT 0.1 MG/DL (0.0-0.2); BILIRUBIN,TOTAL 0.3 MG/DL (0.2-1.0); BLOOD UREA NITROGEN 17 MG/DL (7-18); CALCIUM LEVEL 8.7 MG/DL (8.5-10.1); CARBON DIOXIDE LEVEL 28 MEQ/L (21-32); CHLORIDE LEVEL 106 MEQ/L (98-107); CREATININE FOR GFR 0.98 MG/DL (0.70-1.30); ETHYL ALCOHOL (ETHANOL) < 0.003 % (0.000-0.010); GLOMERULAR FILTRATION RATE > 60.0 (>60); GLUCOSE, FASTING 103 MG/DL (70-100); POTASSIUM SERUM 4.1 MEQ/L (3.5-5.1); SALICYLATE LEVEL < 1.7 MG/DL (5.0-30.0); SODIUM LEVEL 139 MEQ/L (136-145); TOTAL PROTEIN 6.9 GM/DL (6.4-8.2)
[2019-04-12 23:31] VITALS: BP 106/51
== END 2019-04-12 23:40 | disposition home or self-care (01) ==
LOC: M ED 20:32
DX: F41.9 Anxiety disorder, unspecified (principal); F32.9 Major depressive disorder, single episode, unspecified; K21.9 Gastro-esophageal reflux disease without esophagitis; G47.30 Sleep apnea, unspecified; Z87.01 Personal history of pneumonia (recurrent); F17.200 Nicotine dependence, unspecified, uncomplicated; Z79.899 Other long term (current) drug therapy
CPT/HCPCS: 36415; 80048; 80076; 80307; 84443; 85027; 99284; G0480